=== PATIENT | female | born 1960 | race African-American/Black ===

== ENCOUNTER 2017-10-04 01:23 | Inpatient (IN) | payer OTHER ==
[~2017-10-04] VITALS: Ht 154.9 cm; Wt 106.1 kg
[2017-10-04] MEDS ORDERED: MILK OF MA400 MG/52 PO (14:13)
--- NOTE | 2017-10-04 19:24 | Operative Report ---
Operative/Inv Procedure Report Surgery Date: 10/04/17 Name of Procedure: Laparoscopic vertical sleeve gastrectomy and hiatal hernia repair with da Alyssa robot Pre-Operative Diagnosis: Morbid obesity Post-Operative Diagnosis: Morbid obesity and hiatal hernia Estimated Blood Loss: less than 50ml Surgeon/Crm Manager: Russell GANDHI,Tj Palma PA-C Anesthesia: general endotracheal tube, block IV Fluids: LR Urine Output: not measured Drains: none Specimens: portion of stomach Complications: none Condition: stable Operative Indication: see admitting history and physical Operative/Procedure Note Note: After informed consent and proper identification patient was taken to the operating room placed on the operating table in supine position. Venodyne stockings were applied. Patient underwent a general endotracheal anesthetic. A tap block was performed by anesthesia. The abdomen was prepped and draped in normal sterile fashion. Using a Stortz 0 laparoscope through the 8 mm robotic trocar in Optiview fashion and entered through a left incision to the left of the umbilicus dissecting through the rectus muscle posterior sheath and peritoneum into the abdominal cavity without difficulty insufflating with 14 mm CO2 pressure. He had excellent visualization we placed additional trochars in a horizontal line 8 mm in the left lateral position and just medial to this a 12 trocar and then to the right of the midline and additional 8 mm trocar to the right of the umbilicus. The patient had adhesions may be from prior infection of the liver up to the anterior abdominal wall elevating liver partially and was able to elevated the rest of the way using retractor after targeting docking the robot. He is going to his account report. Patient was noted to have a small hiatal hernia. Using a vessel sealer dissected out the gastrohepatic ligament and dissected along the right juanita freeing up the esophagus from the right juanita and then across the hiatus down to the left side we then took the short gastric vessels and vascular attachments opposite angularis approximately 6 cm from the pylorus all the way up to the angle is reflecting the fundus of the stomach we then dissected under the esophagus careful not to injure the vagus nerves and elevating the esophagus dissected free adhesions until we had approximately 2 cm of intra-abdominal esophagus without any tension. This pulled fat pad back into the abdominal cavity.. The juanita using 2 interrupted 2-0 Tycron sutures. This was done with the NG tube in place we then remove the NG tube have anesthesia place a 40 [place] bougie. We then stapled the stomach creating the sleeve with the robotic stapler fire 3 green load 45 mm cartridges followed by 3 cartridges transected remnant stomach we oversewed the entire staple line with a V-30 2-O absorbable V lock suture. We had excellent hemostasis. Anesthesia removed the bougie removed the remnant stomach 12 Endo Catch bag through the 12 mm port all sponge and instrument counts were correct. No significant bleeding the patient tolerated the procedure without complications with closed skin incisions with 4- 0 Monocryl subcuticular stitches she is extubated and taken to recovery in stable Findings: small hiatal hernia, normal liver Discharge Disposition: PACU
--- NOTE | 2017-10-04 21:22 | Admission Core Measures ---
Acute Coronary Syndrome (CM) ACS Core Measures Acute Coronary Syndrome Diagnosis No Congestive Heart Failure (NEW) CHF Core Measures Congestive Heart Failure Diagnosis No Cerebrovascular Accident CVA Core Measures CVA/TIA Diagnosis No Venous Thromboembolism VTE Core Kiran (View Protocol) VTE Risk Factors Age>40 No Mechanical VTE Prophylaxis d/t N/A MechProphylax Ordered No VTE Pharm Prophylaxis d/t NA PharmProphylax ordered Problem List As ranked by this Provider includes Assessment & Plan 1. Morbid obesity 2. Hiatal hernia HOME MEDS Home Med List Magnesium Hydroxide (Milk Of Magnesia) 400 MG/5 ML ORAL.SUSP 30 ML PO X1 preop bowel cleanse (Reported)
--- NOTE | 2017-10-04 21:25 | PN- Bariatrics ---
Subjective Subjective: Postop check: Patient with mild to moderate complaints of epigastric pain and mild nausea. No other complaints. No vomiting. No fever. Objective Vital Signs and I&Os Vital signs stable, afebrile Physical Exam: Well-developed well-nourished no apparent distress. Sleepy, arousable HEENT: Atraumatic, extraocular motion intact Neck: Supple, no lymphadenopathy Respiratory: No respiratory distress Abdomen: Obese, mild to moderate distention, tenderness in the epigastrium. Dressings clean dry and intact Extremities: No edema, no calf pain Neuro: Alert and oriented x3 Psych: Mood affect normal, normal memory normal judgment. Skin: Warm and dry, no rash on exposed skin Assessment/Plan Assessment/Plan Postop day #0 status post robotic laparoscopic sleeve gastrectomy and hiatal hernia repair. Perioperative antibiotics. DVT prophylaxis with Lovenox. GI prophylaxis with Protonix. Pain medication as needed. Bariatric stage I diet, n.p.o. after midnight, upper GI series in the morning IV fluids until tolerating adequate p.o. Follow a.m. labs. Ambulate, out of bed Antiemetics as needed Core Measures Venous Thromboembolism VTE Risk Factors Age>40 No Mechanical VTE Prophylaxis d/t N/A MechProphylax Ordered No VTE Pharm Prophylaxis d/t NA PharmProphylax ordered
--- NOTE | 2017-10-04 21:27 | Surg Short-stay <48hrs Dis Sum ---
Visit Information Visit Dates Admission Date: 10/04/17 Discharge Date: 10/08/17 Surgical Short Stay DC Summary Admission Diagnosis: Morbid obesity, hiatal hernia Final Diagnosis: Same Procedure(s): Robotic laparoscopic sleeve gastrectomy and hiatal hernia repair Summary/Significant Findings: Patient underwent the above-mentioned procedure without complications. She was transferred to the floor. On postop day #1 she underwent an upper GI series which showed no leak. She was started back on a stage I diet. Her pain was controlled, she voided spontaneously, she tolerated adequate p.o. and she was deemed stable for discharge home having tolerated procedure well without complications. Condition at Discharge: Good Discharge Disposition: home or self care Discharge instructions provided to patient/family: Yes Post discharge follow-up plan: Follow-up with Dr. Wells as scheduled. Take pain medication as needed watch for signs of worsening abdominal pain, nausea, vomiting, fever Copies to: Taylor GANDHI,Alix Vazquez
--- NOTE | 2017-10-04 21:29 | Patient Discharge Instructions ---
Discharge Instructions General Discharge Information You were seen/treated for: Morbid obesity and hiatal hernia You had these procedures: Robotic laparoscopic sleeve gastrectomy and hiatal hernia repair Watch for these problems: Worsening abdominal pain, nausea, vomiting, fever, flulike illness, inability to take in adequate amounts of liquids. No bath, but you may shower: Yes Other wound care: Dressings removed in 3 days, you may apply Band-Aids, the Steri-Strips will fall off on their own Special Instructions: Follow bariatric diet as directed Continue to walk frequently Drink plenty of liquids Follow-up with Dr. Wells as scheduled as outpatient, call with any concerns Diet Continue normal diet: No Recommended Diet: Bariatric Activity Full Activity/No Limits: No Activity Self Limited: Yes Pounds, do NOT lift more than: 10 Acute Coronary Syndrome Inclusion Criteria At DC or during hospital stay patient has or had the following: ACS DIAGNOSIS No Discharge Core Measures Meds if any: Prescribed or Continued at Discharge Meds if any: NOT Prescribed or Continued at Discharge Congestive Heart Failure Inclusion Criteria At DC or during hospital stay patient has or had the following: CHF DIAGNOSIS No Discharge Core Measures Meds if any: Prescribed or Continued at Discharge Meds if any: NOT Prescribed or Continued at Discharge Cerebrovascular accident Inclusion Criteria At DC or during hospital stay patient has or had the following: CVA/TIA Diagnosis No Discharge Core Measures Meds if any: Prescribed or Continued at Discharge Meds if any: NOT Prescribed or Continued at Discharge Venous thromboembolism Inclusion Criteria VTE Diagnosis No VTE Type NONE VTE Confirmed by (Test) NONE Discharge Core Measures - Per Current guidelines, there needs to be overlap - treatment for the first 5 days of Warfarin therapy. - If discharged on Warfarin prior to 5 days of - overlap therapy, the patient will need to be - assessed for post discharge needs including - *Post discharge parental anticoagulation - *Warfarin and/or parental anticoagulation education - *Follow up date to check INR post discharge At least 5 days overlap therapy as Inpatient No Meds if any: Prescribed or Continued at Discharge Note: Overlap Therapy is Warfarin and Anticoagulant Meds if any: NOT Prescribed or Continued at Discharge
[2017-10-04 22:24] VITALS: BP 124/76
[2017-10-05 02:38] VITALS: BP 125/65
[2017-10-05 06:30] VITALS: BP 123/67
--- NOTE | 2017-10-05 07:30 | PN- Student ---
Isabela Faustin 10/05/17 1860: Subjective Subjective: Pt states she is feeling well and that she has had little pain over night or this morning. She does feel slight pressure in her chest which she believes is gas pain. She was nauseous last night after leaving the recovery room but it has since resolved. She has not had difficulty urinaing. She has not passed gas or had a bowel movement yet. She denies any obvious chest pain, palpitations, SOB, difficulty breathing, dizziness, KAUR, or vomiting. Objective Objective: Physical Exam: Vitals: See EMR General: Midddle aged, obese, female lying in bed in NAD. Cardio: Regular rate and rhythm. S1 and S2. No murmurs, rubs or gallops appreciated. Pulm: Breath sounds heard in anterior and posterior lung barbosa. Symmetric rise and fall of the chest appreciated. Abdomen: Soft, slightly tender to palpation, non-distended. Incisions are claan and intact with no erythema, edema, excessive warmth or discharge. Normoactive bowel sounds were appreciated. No obvious masses or oranomegaly were appreciated. Extremities: Calves are soft and non-tender bilaterally. ALPs devices are in place. Dorsalis pedis and posterior tibialis pulses are palpable. Plantar and dorisflexion were elicited with 5/5 strength appreciated. Assessment/Plan Assessment: A: Pt is a 57 year old female POD#1 s/p robotic sleeve gastrectomy and hiatal hernia repair, with PMH including morbid obesity and GERD. Pt has tolerated the procedure well and post-operative pain has been well controlled. Plan: P: NPO since midnight for UGI X-Ray in the morning. Bariatric Stage 1 diet afterwards. Continue with pain control. Lovenox use and ALPs device in place for DVT prophylaxis. PPI for GI prophylaxis. Incentive spirometry use enocuraged. Ambulation encouraged. PT to see patient. Continue home medications. Will discuss with Surgical PA team. Mayra Franco 10/05/17 6485: Objective Results Results: Laboratory Tests 10/05/17 0607: Sodium Pending, Potassium Pending, Chloride Pending, Carbon Dioxide Pending, Anion Gap Pending, CBC w Diff Pending, WBC Pending, RBC Pending, Hgb Pending, Hct Pending, MCV Pending, MCH Pending, MCHC Pending, RDW Pending, Plt Count Pending, MPV Pending Assessment/Plan Plan: agree with above PA-S note will f/u labs and upper gi study no need for PT eval oob/ambulation encouraged will d/w
[2017-10-05 08:20] LABS: ABSOLUTE BASOPHIL COUNT 0 /CUMM (0.0-0.2); ABSOLUTE EOSINOPHIL COUNT 0 /CUMM (0.0-0.7); ABSOLUTE GRANULOCYTE CT 5.6 /CUMM (1.4-6.5); ABSOLUTE LYMPH COUNT 0.8 /CUMM (1.2-3.4); ABSOLUTE MONOCYTE COUNT 0.1 /CUMM (0.10-0.60); BASOPHIL % 0.1 % (0.0-2.0); EOSINOPHIL % 0 % (0-5); HEMATOCRIT 38.1 % (37-47); MEAN CORPUSCULAR HGB 29.7 PG (27.0-31.0); MEAN CORPUSCULAR HGB CONC 33.1 G/DL (33.0-37.0); MEAN CORPUSCULAR VOLUME 89.6 FL (81.0-99.0); MEAN PLATELET VOLUME 9.6 FL (7.4-10.4); PLATELET COUNT 197 /CUMM (130-400); RBC DISTRIBUTION WIDTH 14.7 % (11.5-14.5); RED BLOOD CELL CT 4.25 /CUMM (4.20-5.40); WHITE BLOOD CELL COUNT 6.4 /CUMM (4.8-10.8)
[2017-10-05 09:00] LABS: GRANULOCYTE % 86.6 % (42.2-75.2)
--- NOTE | 2017-10-05 10:06 | RADIOLOGY REPORT ---
EXAMINATION: FL UPPER GI SERIES CLINICAL INFORMATION: 57-year-old female status post hiatal hernia repair and sleeve gastrectomy. COMPARISON: None TECHNIQUE: A single contrast upper GI series with fluoroscopy and spot imaging was performed. The patient ingested Gastroview contrast material without difficulty and was evaluated in the upright and recumbent positions. FLUOROSCOPY TIME: 45 seconds NUMBER OF IMAGES: 9 images FINDINGS: After oral intake of 30 mL of Gastroview contrast material, there was normal passage of contrast through the esophagus and into the stomach, which had the expected configuration after sleeve gastrectomy. No residual hiatal hernia. No delay in passage of contrast into the normal duodenum. No evidence of a fixed filling defect, mucosal thickening or contrast leakage. IMPRESSION: - No evidence of hiatal hernia. - Status post sleeve gastrectomy without contrast leakage or upper GI tract obstruction.
[2017-10-05] MEDS ORDERED: HYDROCODON-ACET15 ML PO (11:32)
[2017-10-05] MEDS ORDERED: PROTONIX40 M3 PO (11:32)
[2017-10-05 14:46] VITALS: BP 161/73
[2017-10-05 14:57] VITALS: BP 156/80
[2017-10-05 21:33] VITALS: BP 130/72
[2017-10-06 05:58] VITALS: BP 152/84
--- NOTE | 2017-10-06 07:28 | PN- Bariatrics ---
Subjective Subjective: No complaints.Had gas pains last night, but now resolved. Tolerating stage 1 diet Objective Vital Signs and I&Os Vital Signs Date Time Temp Pulse Resp B/P B/P Pulse O2 O2 Flow FiO2 Mean Ox Delivery Rate 10/06 0711 60 10/06 0600 Room Air 10/06 0558 97.9 47 20 152/84 97 10/05 2133 98.2 56 17 130/72 99 Room Air 10/05 1457 60 156/80 10/05 1446 97.5 48 20 161/73 99 Room Air 10/05 1400 96 Room Air 10/05 0800 96 Room Air Intake & Output 10/06 0810/06 0000 10/05 1600 10/05 0800 10/05 0000 10/04 1600 Intake Total 3923 005 7897 1600 345 Output Total 1000 964 476 8999 200 Balance 200 150 260 550 145 Intake, IV 1200 547 391 5421 300 Intake, Oral 150 210 0 45 Number 0 0 Bowel Movements Output, Urine 1000 561 348 9926 200 Patient 234 lb Weight Weight Reported by Patient Measurement Method Alert, oriented, appropriate Lungs clear Herat regular Abdomen benign, port sites are inact, appropriately mildly tender No edema Assessment/Plan Assessment/Plan s/p robo gastric sleeve POD#2 progressing well Tolerating diet Ambulatory Abdominal exam benign. d/c home today. No lovenox Core Measures Venous Thromboembolism VTE Risk Factors Age>40 No Mechanical VTE Prophylaxis d/t N/A MechProphylax Ordered No VTE Pharm Prophylaxis d/t NA PharmProphylax ordered
== END 2017-10-06 10:04 | DRG 621 ==
LOC: SDA 01:23 → ENRESERV 19:32 → ENTRNSPT 20:02 → EDTRNSPT 20:20 → EDTRNSPTSTS 20:20 → 2NB 20:31 → CMPTRNSPT 20:37 → ENPENDDIS 10-06 07:30 → 2NB 10-06 10:04
PROVIDERS: Physician Assistant Surgical
PROC: 0BQT4ZZ Repair Diaphragm, Percutaneous Endoscopic Approach (ICD-10-PCS; principal; 2017-10-04)
PROC: 8E0W4CZ Robotic Assisted Procedure of Trunk Region, Percutaneous Endoscopic Approach (ICD-10-PCS; principal; 2017-10-04)
PROC: 0DB64Z3 Excision of Stomach, Percutaneous Endoscopic Approach, Vertical (ICD-10-PCS; principal; 2017-10-04)
PROC: 3E0T3BZ Introduction of Anesthetic Agent into Peripheral Nerves and Plexi, Percutaneous Approach (ICD-10-PCS; principal; 2017-10-04)
DX: E66.01 Morbid (severe) obesity due to excess calories (principal); Z68.42 Body mass index [BMI] 45.0-49.9, adult; K44.9 Diaphragmatic hernia without obstruction or gangrene
CPT/HCPCS: 36592; 74240; J0131; J0690; J1100; J1644; J1650; J1885; J2405; J3490; J7120